=== PATIENT | female | born 1945 | race Caucasian/White ===

== ENCOUNTER 2024-09-18 06:42 | Emergency (ER) | payer BC ==
[~2024-09-18] VITALS: Ht 154.9 cm; Wt 50.8 kg
[2024-09-18] MEDS ORDERED: NITROGLYCERIN OINT 1 GM PACKET TP ONE (06:54)
[2024-09-18] MEDS ORDERED: METOCLOPRAMIDE HCL 10 MG/2 ML VIAL ONE (06:54)
[2024-09-18] MEDS ORDERED: MORPHINE SULFATE 4 MG/1 ML DISP.SYRIN ONE (06:55)
[2024-09-18] MEDS: MORPHINE SULFATE 4 MG/1 ML DISP.SYRIN IV ONE (07:00)
[2024-09-18] MEDS: NITROGLYCERIN OINT 1 GM PACKET TP ONE (07:00)
[2024-09-18] MEDS: METOCLOPRAMIDE HCL 10 MG/2 ML VIAL IV ONE (07:00)
[2024-09-18] MEDS: IV NS 1000 ML 1,000 ML IV ONE (07:00)
[2024-09-18] MEDS ORDERED: METO-357 PO (07:07)
[2024-09-18] MEDS ORDERED: UPAD15TA PO (07:07)
[2024-09-18] MEDS ORDERED: NINT100C PO (07:07)
[2024-09-18 07:36] LABS: BASOPHILS # (AUTO) 0.1 K/UL (0.0-0.2); BASOPHILS % (AUTO) 1.4 % (0.0-2.0); EOSINOPHILS # (AUTO) 0.1 K/uL (0.0-0.7); EOSINOPHILS % (AUTO) 1.1 % (0.0-7.0); HEMATOCRIT 38.7 % (31.2-41.9); HEMOGLOBIN 12.6 g/dL (10.9-14.3); LYMPHOCYTES # (AUTO) 2.1 K/uL (0.8-4.8); LYMPHOCYTES % (AUTO) 32.9 % (20.5-51.5); MEAN CORPUSCULAR HEMOGLOBIN 30.4 uug (24.7-32.8); MEAN CORPUSCULAR HGB CONC 33 g/dL (32.3-35.6); MEAN CORPUSCULAR VOLUME 93.3 fL (75.5-95.3); MONOCYTES # (AUTO) 0.6 K/uL (0.1-1.30); MONOCYTES % (AUTO) 9.5 % (0.0-11.0); NEUTROPHILS # (AUTO) 3.5 K/uL (1.8-8.9); NEUTROPHILS % (AUTO) 55.1 % (38.5-71.5); PLATELET COUNT (AUTO) 306 K/uL (179-408); RED BLOOD CELL COUNT(AUTO) 4.15 MIL/uL (3.63-4.92); RED CELL DISTRIBUTION WIDTH 18.1 % (12.3-17.7); WHITE BLOOD COUNT (AUTO) 6.3 K/uL (3.8-11.8)
[2024-09-18 07:46] LABS: DIFFERENTIAL COMMENT 1
[2024-09-18 07:53] LABS: CALCIUM 9.3 mg/dL (8.5-10.1); CARBON DIOXIDE 30 mmol/L (21-32); CHLORIDE 107 mmol/L (98-107); CREATININE 0.7 mg/dL (0.6-1.3); GLUCOSE 91 mg/dL (74-106); POTASSIUM 3.3 mmol/L (3.5-5.1); SODIUM SERUM 145 mmol/L (136-145); UREA NITROGEN, BLOOD 16 mg/dL (7-18)
[2024-09-18 08:06] LABS: ALANINE AMINOTRANSFERASE 31 U/L (14-59); ALKALINE PHOSPHATASE 100 U/L (50-136); ASPARTATE AMINOTRANSFERASE 38 U/L (15-37); BILIRUBIN,DIRECT 0.1 mg/dL (0.0-0.2); BILIRUBIN,TOTAL 0.2 mg/dL (0.2-1.0); NT-PRO BNP 1098 pg/mL (0-125); TOTAL PROTEIN, SERUM 7.2 g/dL (6.4-8.2)
[2024-09-18] MEDS ORDERED: POTASSIUM CHLORIDE 20 MEQ TAB.PRT.SR ONE (08:29)
[2024-09-18] MEDS: POTASSIUM CHLORIDE 20 MEQ TAB.PRT.SR PO ONE (08:36)
[2024-09-18] MEDS ORDERED: METOPROLOL SUCCINATE XL 50 MG TAB.SR.24H PO ONE (08:39)
[2024-09-18] MEDS ORDERED: predniSONE 10 MG TABLET ONE (08:40)
[2024-09-18] MEDS: METOPROLOL SUCCINATE XL 50 MG TAB.SR.24H PO ONE (08:45)
[2024-09-18] MEDS: predniSONE 10 MG TABLET PO ONE (08:46)
[2024-09-18 10:25] LABS: LYMPHOCYTES % (MANUAL) 27 % (20-40); NEUTROPHILS % (MANUAL) 56 % (42-75)
[2024-09-18 10:26] LABS: MONOCYTES % (MANUAL) 17 % (2-10); PLATELET ESTIMATE ADEQUATE
[2024-09-18 12:42] VITALS: BP 142/81; TEMP 98; O2SAT 98
== END 2024-09-18 12:44 | disposition home or self-care (01) ==
LOC: ER 06:51
DX: R07.89 Other chest pain (principal); R11.0 Nausea; R19.7 Diarrhea, unspecified; R94.31 Abnormal electrocardiogram [ECG] [EKG]; I10 Essential (primary) hypertension; M06.9 Rheumatoid arthritis, unspecified; Z79.899 Other long term (current) drug therapy
CPT/HCPCS: 99285; 96374; 71045; 96361; 96375; 80076; 80048; 83880; 83735; 85025; 85730; 84484 ×2; 36415; 93005; 85007; J7512; J2765; J2270; J7040; 70030-TC; A4606; A4663